=== PATIENT | male | born 1990 | race African-American/Black ===

== ENCOUNTER 2021-08-17 19:46 | Emergency (ER) | payer SELFPAY ==
[~2021-08-17] VITALS: Ht 190.5 cm; Wt 81.8 kg
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
[2021-08-17] MEDS ORDERED: NICOTINE 21MG PATCH. TD ONE (22:30)
[2021-08-18 16:08] VITALS: BP 133/76
== END 2021-08-18 16:24 ==
LOC: ER 19:46
DX: F22 Delusional disorders (principal); F20.9 Schizophrenia, unspecified; F17.200 Nicotine dependence, unspecified, uncomplicated
CPT/HCPCS: 99285-25

== ENCOUNTER 2021-09-20 21:03 | Emergency (ER) | payer SELFPAY ==
[~2021-09-20] VITALS: Ht 188 cm; Wt 75.0 kg
--- NOTE | 2021-09-20 21:11 | PHYS DOC ---
Past Medical History Past Medical History: Schizophrenia Additional Past Medical Histor: PHYSICAL AGGRESSION (KELLY FLEMING DO) Past Surgical History: Other Additional Past Surgical Histo: UNABLE TO ASSESS (KELLY FLEMING DO) Smoking Status: Current Every Day Smoker Alcohol Use: Occasionally Drug Use: Amphetamine (KELLY FLEMING DO) General Adult HPI: HPI: Patient is a 30 year old male who presents via EMS with report of feeling like he wants to harm someone. He denies any specific plan, denies wanting to harm any specific person. He does not reference specifically killing anyone. He denies suicidal ideation. He admits to using methamphetamine, as recently as yesterday. He reports drinking alcohol occasionally. His last drink of alcohol was either yesterday or earlier today. He has a history of mental illness, reportedly has some sort of psychotic disorder, reportedly may have had schizophrenia, though this is not definitively been diagnosed. He has a history of violent behavior. He was seen here in August of this year for similar issues. He had been admitted involuntarily to OSH at that time. It is unclear how long he actually stayed there. He reports that he has been prescribed medications, he does not know the names of these medicines, and he admits to not taking them. He denies any physical pain or discomfort. He is paranoid, he asks why the doors open, asks that the monitors to be turned off, he wonders why there is a sitter in his room. He is asking for food and drink. (KELLY FLEMING DO) Review of Systems: Review of Systems: Constitutional: Denies fever or chills. [] Eyes: Denies change in visual acuity. [] HENT: Denies nasal congestion or sore throat. [] Respiratory: Denies cough or shortness of breath. [] Cardiovascular: Denies chest pain or edema. [] GI: Denies abdominal pain, nausea, vomiting Musculoskeletal: Denies back pain or joint pain. [] Integument: Denies rash. [] Neurologic: Denies headache, focal weakness or sensory changes. [] Psychiatric: Anxiety, agitation, paranoia. Homicidal ideation reported. Denies suicidal ideation. (KELLY FLEMING DO) Heart Score: C/O Chest Pain: No Risk Factors: Risk Factors: DM, Current or recent (<one month) smoker, HTN, HLP, family history of CAD, obesity. Risk Scores: Score 0 - 3: 2.5% MACE over next 6 weeks - Discharge Home Score 4 - 6: 20.3% MACE over next 6 weeks - Admit for Clinical Observation Score 7 - 10: 72.7% MACE over next 6 weeks - Early Invasive Strategies (KELLY FLEMING DO) Allergies: Allergies: Allergies Coded Allergies Type Severity Reaction Last Updated Verified Penicillins Allergy Intermediate RASH 08/17/21 Yes (KELLY FLEMING DO) Physical Exam: PE: Constitutional: Well developed, well nourished, no acute distress, non-toxic appearance. [] HENT: Normocephalic, atraumatic, oropharynx is patent and clear, mucous members are moist. Eyes: PERRL, EOMI, conjunctiva normal, no discharge. No nystagmus. No scleral icterus Neck: Normal range of motion, no tenderness, supple, no stridor. No thyromegaly. No meningismus. Trachea is midline. Cardiovascular:Heart rate regular rhythm, 2 radial pulses bilaterally Lungs & Thorax: Bilateral breath sounds clear to auscultation [] Abdomen: Abdomen is soft, nondistended, nontender to palpation. No palpable masses. No evidence of trauma Skin: Warm, dry, no erythema, no rash. No open wounds. No jaundice Back: No tenderness, no CVA tenderness. Range of motion, no deformity Extremities: No tenderness, no cyanosis, no clubbing, ROM intact, no edema. No limb deformity. No calf tenderness Neurologic: Alert and oriented X 3, normal motor function, normal sensory function, no focal deficits noted. [] Psychologic: Anxious, appears somewhat paranoid, somewhat mildly agitated, easily verbally redirected. He is overall very cooperative. Does not appear to be responding to internal stimuli. Admits to thoughts of wanting to harm nonspecific people, without specific plan. Denies suicidal ideation. (KELLY FLEMING DO) EKG: EKG: [] (KELLY FLEMING DO) Radiology/Procedures: Radiology/Procedures: [] (KELLY FLEMING DO) Course & Med Decision Making: Course & Med Decision Making Pertinent Labs and Imaging studies reviewed. (See chart for details) Patient is given oral Ativan and oral Zyprexa. He is given food and drink. He is resting comfortably, fell asleep quite quickly. He was initially assessed by the PAT team. He is not able to stay awake enough to cooperate meaningfully for evaluation. He has been seen by the same PAT team assembler many times, and he is familiar to them. He will be allowed to sleep in the ER overnight, he may be reassessed after he sleeps and rests, later in the morning. The patient has been cooperative and compliant, has not demonstrated any physical aggression here in the ER. He is medically stable at this time. The patient awoke and was conversant, so PAT team was called back in to see him. The patient has reportedly requested to be sent to [facility]. They are contacted, information is faxed to them and disposition is pending as of 0600. Covid PCR is pending as well. The patient continues to state that he wants to harm someone, no specific person, with no specific plan. He has not been floridly psychotic, though he does manifest some mild paranoia. The PAT team will reassess him after 0700 today. I am transferring care to Dr. Baires for follow-up and disposition. (KELLY FLEMING DO) Course & Med Decision Making I received signout at shift change from Dr. Fleming. Patient is now medically cleared for inpatient psych is pending placement for voluntary onset ideations. Patient has a history of methamphetamine abuse. No acute events during my shift. Due to shift change patient was signed out to oncoming physician Dr. Fleming (WILLY BAIRES DO) [place] Disclaimer: Reina Disclaimer: This electronic medical record was generated, in whole or in part, using a voice recognition dictation system. (KELLY FLEMING DO) Departure Departure Impression: Primary Impression: Homicidal ideation Additional Impressions: Methamphetamine abuse Paranoia Condition: STABLE Referrals: NO PCP (PCP) KELLY FLEMING DO Sep 20, 2021 21:11 WILLY BAIRES DO Sep 21, 2021 17:41
[2021-09-20] MEDS ORDERED: OLANZapine 5 MG TABLET PO ONE (21:30)
[2021-09-20 21:46] LABS: BASO # 0.1 x10^3/uL (0.0-0.2); BASO % 1 % (0-3); EOS # 0.2 x10^3/uL (0.0-0.7); EOS % 4 % (0-3); HEMATOCRIT 43.1 % (39.0-53.0); HEMOGLOBIN 14.5 g/dL (13.0-17.5); LYMPH # 1.9 x10^3/uL (1.0-4.8); LYMPH % 31 % (24-48); MEAN CORPUSCULAR HEMOGLOBIN 30 pg (25-35); MEAN CORPUSCULAR HGB CONC 34 g/dL (31-37); MEAN CORPUSCULAR VOLUME 89 fL (79-100); MONO # 0.5 x10^3/uL (0.0-1.1); MONO % 9 % (0-9); NEUT # 3.4 x10^3/uL (1.8-7.7); NEUT % 55 % (31-73); PLATELET COUNT 174 x10^3/uL (140-400); RED BLOOD COUNT 4.84 x10^6/uL (4.30-5.70); WHITE BLOOD COUNT 6.2 x10^3/uL (4.0-11.0)
[2021-09-20 22:03] LABS: CALCIUM 9.1 mg/dL (8.5-10.1); CREATININE 1.1 mg/dL (0.7-1.3); GFR 93.9; POTASSIUM 3.9 mmol/L (3.5-5.1)
[2021-09-20 22:16] LABS: ACETAMIN < 2 mcg/ml (10-30); ETHANOL < 10 mg/dL (0-10); SALIC < 0.2 mg/dL (2.8-20.0)
[2021-09-20 22:59] LABS: BARBITURATES NEG (NEG); BENZODIAZEPINES NEG (NEG); CANNABINOIDS NEG (NEG); COCAINE NEG (NEG); METHADONE NEG (NEG); OPIATES NEG (NEG); PHENCYCLIDINE NEG (NEG)
[2021-09-20 23:01] LABS: AMPHETAMINE/METHAMPHETAMINE POS (NEG)
[2021-09-20 23:14] LABS: BILIRUBIN,URINE NEGATIVE (NEG); CLARITY,URINE CLEAR; COLOR,URINE YELLOW
[2021-09-20 23:15] LABS: NITRITE,URINE NEGATIVE (NEG); PH,URINE 6.5 (<5.0-8.0); PROTEIN,URINE 30 mg/dL (NEG-TRACE); UROBILINOGEN,URINE 0.2 mg/dL (0.2 mg/dL)
[2021-09-20 23:16] LABS: BACTERIA,URINE 0 /HPF (0-FEW); RBC,URINE RARE /HPF (0-2); SPERM,URINE PRESENT /HPF
[2021-09-22 01:06] VITALS: BP 104/69
== END 2021-09-22 01:10 ==
LOC: EEVIPCON 21:03 → ER 21:03
DX: R45.850 Homicidal ideations (principal); Z20.822 Contact with and (suspected) exposure to COVID-19; F20.9 Schizophrenia, unspecified; F17.200 Nicotine dependence, unspecified, uncomplicated; Z88.0 Allergy status to penicillin
CPT/HCPCS: 80048; 80307; 80329; 81001; 85025; 87426; 99285; G0480; U0003